=== PATIENT | female | born 1995 | race Caucasian/White ===

== ENCOUNTER 2025-07-15 20:12 | Emergency (ER) | payer OTHER ==
[~2025-07-15] VITALS: Ht 165.1 cm; Wt 55.5 kg
[2025-07-15 20:20] VITALS: O2SAT 99
[2025-07-15 23:22] LABS: BASOPHILS % 0.5 % (0.0-2.0); EOSINOPHILS % 0.8 % (0.0-5.0); HEMATOCRIT. 37.5 % (36.0-48.0); HEMOGLOBIN. 12.8 g/dL (12.0-16.0); LYMPHOCYTES % 35.2 % (20.0-50.0); MEAN PLATELET VOLUME 7.1 fl (7.4-10.4); MONOCYTES % 5.5 % (2.0-8.0); NEUTROPHILS % 58.0 % (40.0-76.0); PLATELET 336 x1000/uL (130-400); RED BLOOD CELL COUNT 4.27 mill/uL (4.2-5.4); RED CELL DISTRIBUTION WIDTH 12.2 % (11.6-14.6)
[2025-07-15 23:27] LABS: INR 1.1
[2025-07-15 23:30] LABS: CREATININE 0.7 mg/dL (0.6-1.0); UREA NITROGEN BLOOD 9 mg/dL (9-23)
[2025-07-15 23:36] LABS: HCG SCREEN NEGATIVE
[2025-07-16 01:30] VITALS: BP 106/65; PULSE 78; RESP 14; TEMP 36.7; O2SAT 100
== END 2025-07-16 01:30 | disposition home or self-care (01) ==
LOC: ER 20:12
DX: S70.12XA Contusion of left thigh, initial encounter (principal); X58.XXXA Exposure to other specified factors, initial encounter; Y93.89 Activity, other specified; Y92.89 Other specified places as the place of occurrence of the external cause; Y99.8 Other external cause status
CPT/HCPCS: 36415; 80048; 84703; 85025; 93970; 99284